=== PATIENT | male | born 1935 | race Caucasian/White ===

== ENCOUNTER 2016-10-24 10:06 | Emergency (ER) | payer MEDICARE, OTHER ==
[2016-10-24] MEDS ORDERED: NORMAL SALINE 1000 ML 1,000 ML IV PRN ×2 (10:39→17:46)
--- NOTE | 2016-10-24 10:39 | ER Document Report ---
ED General - General Stated Complaint: WEAKNESS Time seen by provider: 10:35 Mode of Arrival: Medic Information source: Relative Notes: This is an 81-year-old man with a history of coronary artery disease (STEMI, status post recent stents placed in September 28, 2016 in [place]) who presents to the emergency room with a one week history of generalized weakness with multiple falls. The patient's daughter states that he was found on the floor this morning. He has been hallucinating and appears very confused. The patient 's daughter also states she's had decreased by mouth intake. She states the fall with a head injury was yesterday. She states that he has fallen 4 times in the past 3-4 days. Note: Patient states he had some chest pain last week, he has denied any significant chest pain today. TRAVEL OUTSIDE OF THE [place] IN LAST 30 DAYS: No - HPI Onset: Last week Onset/Duration: Gradual Quality of pain: No pain Severity: None Pain Level: Denies Associated symptoms: denies: Chills, Fever Exacerbated by: Denies Relieved by: Denies Similar symptoms previously: No Recently seen / treated by doctor: Yes - Related Data Allergies/Adverse Reactions: No Known Allergies Allergy (Unverified 10/24/16 11:27) Past Medical History - General Information source: Patient - Social History Smoking Status: Former Smoker Cigarette use (# per day): No Chew tobacco use (# tins/day): No Frequency of alcohol use: None Drug Abuse: None Lives with: Family Family History: None Patient has suicidal ideation: No Patient has homicidal ideation: No - Past Medical History Cardiac Medical History: Reports: Hx Coronary Artery Disease, Hx Hypercholesterolemia, Hx Hypertension Pulmonary Medical History: Reports: None EENT Medical History: Reports: None Neurological Medical History: Reports: None Endocrine Medical History: Reports: None Renal/ Medical History: Reports: None Malignancy Medical History: Reports None GI Medical History: Reports: None Musculoskeltal Medical History: Reports None Psychiatric Medical History: Reports: None Past Surgical History: Reports: Hx Cardiac Surgery - bipass Review of Systems - Review of Systems Notes: Review of systems: Constitutional: Denies fever, chills. Diffuse weakness. Multiple falls. EENT: Denies ear pain, sinus tenderness, throat pain, throat swelling. Cardiovascular: Episode of chest pain several days ago Respiratory: Denies wheezing, cough, hemoptysis. Abdomen: Denies abdominal pain, nausea, vomiting, diarrhea. Denies BRBPR or melena. Genitourinary: Denies dysuria, pyuria, hematuria, flank pain. Musculoskeletal: denies joint pain or swelling, denies back pain. Neurologic: Denies headache, photophobia, neck stiffness, weakness. Denies loss of bowel or bladder function. Denies saddle anesthesia. Skin: Evidence of falls Physical Exam - Vital signs Vitals: Pulse Resp BP Pulse Ox 70 23 H 113/71 94 10/24/16 10:10 10/24/16 10:10 10/24/16 10:10 10/24/16 10:10 Notes: Physical exam: GENERAL: Patient's eyes are open, he is responsive, he does appear weak and his skin and mucous membranes appear dry. Temperature 99.2 rectally HEAD: Normocephalic. Patient does have a left frontal contusion. EYES: Pupils equal round and reactive to light, extraocular movements intact, sclera anicteric, conjunctiva are normal. ENT: Toropharynx clear without exudates. Dryvmucous membranes. NECK: Normal range of motion, supple without lymphadenopathy or JVD. Chest wall: Patient does have ecchymoses to the left chest wall after fall. There is some tenderness to the chest wall in that area. LUNGS: Breath sounds clear to auscultation bilaterally and equal. No wheezes rales or rhonchi. HEART: Regular rate and rhythm without murmurs, rubs or gallops. ABDOMEN: Soft, normoactive bowel sounds. No tenderness to palpation. No guarding, no rebound. No masses appreciated. Rectal: Stool is brown. EXTREMITIES: Patient does have some tenderness to the right wrist. There is minimal swelling and no ecchymoses. Patient does have ecchymoses to the left hand dorsally. He is moving all extremities. NEUROLOGICAL: Cranial nerves II through XII grossly intact. Normal speech, he does appear weak and is moving all extremities. His gait was not assessed. SKIN: Warm, Dry, normal turgor, no rashes or lesions noted. Course - Re-evaluation Re-evalutation: 10/24/16 13:57 Note: This is an 81-year-old man with coronary artery disease and a recent stent. The patient's daughter states that Dr. Cisse at [facility] the discussed may be putting in a second stent. The patient did fine after the first stent. But over the past several days he's had increased weakness. He does state he had an episode of chest pain last week. Since then he is been fatigued. He has fallen several times. He denies any fever. On physical exam he does look weak and dehydrated. Of concern, as he has an elevated troponin. It might be possible that he had had a NSTEMI in the past several days leading to this profound weakness now. He is currently on Brilinta and aspirin. Given his recent falls and heme positive stool (his stool is brown, but it was heme positive) we are withholding any further anticoagulations. In any event, we will be transferring him to [facility]. His labs also show some mild dehydration and we are giving him some IV fluids. His white count does show mild elevation (13.7K) and we are waiting on a urine test (he does not want a straight catheter at this time). His chest x-ray shows a basilar density that his been seen in the past. It may be more prominent which could be pleural effusion or possible infiltrate. Due to the fact that the patient has had an elevated white count, I will start some antibiotics. I've discussed the case with Dr. Davin Mancilla at [facility] and he is willing to accept the patient in transfer. 10/24/16 14:00 10/24/16 20:17 - Vital Signs Vital signs: Temp Pulse Resp BP Pulse Ox 99.2 F 70 24 H 102/66 96 10/24/16 10:15 10/24/16 10:15 10/24/16 19:01 10/24/16 19:00 10/24/16 19:01 - Laboratory Result Diagrams: 10/24/16 10:15 10/24/16 10:15 Laboratory results interpreted by me: 10/24/16 10/24/16 10/24/16 10:15 10:15 10:15 WBC 13.7 H RBC 3.95 L Hgb 11.6 L Hct 34.9 L RDW 14.8 H Seg Neuts % (Manual) 94 H Band Neutrophils % 1 L Lymphocytes % (Manual) 3 L Monocytes % (Manual) 2 L Abs Neuts (Manual) 13.0 H Abs Lymphs (Manual) 0.4 L Sodium 132.3 L Chloride 94 L Carbon Dioxide 21 L BUN 49 H Creatinine 1.28 H Est GFR (Non-Af Amer) 54 L Glucose 116 H Alkaline Phosphatase 185 H NT-Pro-B Natriuret Pep 7390 H Albumin 2.7 L Urine Blood Ur Leukocyte Esterase 10/24/16 15:01 WBC RBC Hgb Hct RDW Seg Neuts % (Manual) Band Neutrophils % Lymphocytes % (Manual) Monocytes % (Manual) Abs Neuts (Manual) Abs Lymphs (Manual) Sodium Chloride Carbon Dioxide BUN Creatinine Est GFR (Non-Af Amer) Glucose Alkaline Phosphatase NT-Pro-B Natriuret Pep Albumin Urine Blood LARGE H Ur Leukocyte Esterase TRACE H - Diagnostic Test Radiology reviewed: Image reviewed, Reports reviewed - CT of the cervical spine shows degenerative changes. No acute findings. CT of the head shows no acute bleed. X-rays of the right wrist show no fracture. There is basilar densities at the left base which is seen in the past. May be more prominent now. Possibility of pleural effusion. - EKG Interpretation by Wy Rate: Normal Rhythm: NSR - EKG shows a normal sinus rhythm with a ventricular rate of 63, right bundle branch block with a left axis deviation. There is no acute ST-T wave changes per Critical Care Note - Critical Care Note Total time excluding time spent on procedures (mins): 90 Discharge - Discharge Clinical Impression: NSTEMI Condition: Stable Disposition: [facility] Referrals: YANIV HATCH NP [Primary Care Provider] - Follow up as needed
[2016-10-24 11:18] LABS: ALANINE AMINOTRANSFERASE 42 U/L (21-72); ALBUMIN 2.7 g/dL (3.5-5.0); ALKALINE PHOSPHATASE 185 U/L (38-126); ANION GAP 17 (5-19); ASPARTATE AMINO TRANSFERASE 57 U/L (17-59); BLOOD UREA NITROGEN 49 mg/dL (7-20); CALCIUM 9.3 mg/dL (8.4-10.2); CARBON DIOXIDE 21 mmol/L (22-30); CHLORIDE 94 mmol/L (98-107); CREATINE KINASE 139 U/L (55-170); CREATININE RESULT 1.28 mg/dL (0.52-1.25); GLUCOSE 116 mg/dL (75-110); HEMATOCRIT 34.9 % (37.9-51.0); HEMOGLOBIN 11.6 g/dL (13.5-17.0); HGB HCT DIFFERENCE -0.1; MEAN CORPUSCULAR HEMOGLOBIN 29.3 pg (27.0-33.4); MEAN CORPUSCULAR HGB CONC 33.2 g/dL (32.0-36.0); MEAN CORPUSCULAR VOLUME 88 fl (80-97); RED BLOOD COUNT 3.95 10^6/uL (4.35-5.55); RED CELL DISTRIBUTION WIDTH 14.8 % (11.5-14.0); SODIUM 132.3 mmol/L (137-145); TOTAL PROTEIN 6.8 g/dL (6.3-8.2); WHITE BLOOD COUNT 13.7 10^3/uL (4.0-10.5)
[2016-10-24 11:20] LABS: BAND NEUTROPHILS % (MANUAL) 1 % (3-5); BASOPHILS % (MANUAL) 0 % (0-2); EOSINOPHILS % (MANUAL) 0 % (0-6); LYMPHOCYTES % (MANUAL) 3 % (13-45); TOTAL CELLS COUNTED 100
[2016-10-24 11:21] LABS: RBC MORPHOLOGY COMMENT NORMO-CYTIC/CHROMIC
[2016-10-24 11:28] LABS: CREATINE KINASE MB 2.15 ng/mL (<4.55)
[2016-10-24 11:32] LABS: TROPONIN I 1.5 ng/mL
--- NOTE | 2016-10-24 12:11 | EKG REPORT ---
SEVERITY:- ABNORMAL ECG - SINUS RHYTHM RIGHT BUNDLE BRANCH BLOCK : Confirmed by: Radha Trejo MD 24-Oct-2016 12:10:32
[2016-10-24 15:31] LABS: APPEARANCE,URINE SLIGHTLY-CLOUDY; BILIRUBIN,URINE NEGATIVE (NEGATIVE); GLUCOSE, URINE NEGATIVE (NEGATIVE); KETONES,URINE NEGATIVE (NEGATIVE); LEUKOCYTE ESTERASE,URINE TRACE (NEGATIVE); NITRITE,URINE NEGATIVE (NEGATIVE); PROTEIN,URINE NEGATIVE (NEGATIVE); URINE SPECIFIC GRAVITY 1.016; UROBILINOGEN,URINE NEGATIVE mg/dL (<2.0)
[2016-10-24] MEDS ORDERED: MORPHINE SULFATE 10 MG/ML INJ IV ONE (17:47)
[2016-10-24] MEDS ORDERED: CEFTRIAXONE 2 GM/D5W RTU 50 ML IV ONE (20:17)
[2016-10-24] MEDS ORDERED: CEFTRIAXONE 1 GM/D5W RTU 50 ML IV ONE (20:31)
[2016-10-24 20:42] VITALS: BP 108/66
--- NOTE | 2016-10-24 20:46 | EKG REPORT ---
SEVERITY:- ABNORMAL ECG - SINUS RHYTHM RIGHT BUNDLE BRANCH BLOCK : Confirmed by: Radha Trejo MD 24-Oct-2016 20:46:10
== END 2016-10-24 20:41 | disposition short-term general hospital (02) ==
LOC: ER 10:06
DX: I21.4 Non-ST elevation (NSTEMI) myocardial infarction (principal); R53.1 Weakness; I25.10 Atherosclerotic heart disease of native coronary artery without angina pectoris; Z87.891 Personal history of nicotine dependence
CPT/HCPCS: 93005 ×2; 99291; 99292; 96361; 51701; 96374; 96375; 36415; 87040; 87086; 82553; 82550; 85025; 82272; 87077; 87088; 80053; 81001; 84484; 87186; 83605; 83880; 71010; 73110; 70450; 72125; 93010; J2270; J7030; J0696